=== PATIENT | male | born 1960 | race Caucasian/White ===

== ENCOUNTER 2019-08-02 07:35 | Inpatient (IN) | payer MEDICARE ==
[2019-08-02 08:31] LABS: CHLORIDE,CL 107 mEq/L (98-106); SODIUM,NA 142 mEq/L (136-145)
--- NOTE | 2019-08-02 09:30 | EDM.PDOC ---
ED HPI GENERAL MEDICAL PROBLEM - General Chief Complaint: General Stated Complaint: BREATHING COMPLICATIONS/MEDICINE OUT OF WHACK Time Seen by Provider: 08/02/19 08:11 Source of Information: Reports: Patient History Limitations: Reports: Altered Mental Status - History of Present Illness INITIAL COMMENTS - FREE TEXT/NARRATIVE: Nash is a 59-year-old male who presents ambulatory to the emergency department with an array of complaints. He reports that his medications have been "out of whack" as he does not have a stable living environment and he has been having issues because of this. Reports that he was diagnosed with cardiomyopathy at the [facility] earlier this year. He reports he is supposed to be taking diuretics, but he has not been taking these lately as he has been basically living out of his car. Additionally he reports he is also stopped taking his Depakote. He does have a history of bipolar disorder and has had manic episodes in the past. His story is very difficult to follow as he is in an obvious manic phase. He has flight of ideas and is tangential when trying to explain his story. In addition to this he also has very rapid speech and grandiose thoughts. He reports that he is unable to care for himself due to his current living situation, lack of motivation, and lack of family support. He reports he follows with at the [facility] [place] for his mental health. He reports that he has been out of his Depakote for approximately a week. He reports that he has not been taking his diuretics as he "does not have the bathroom that he can sit on for 3 hours in the morning." He reports that because of this his heart failure is uncontrolled and he is "filling up with fluids in his abdomen." Additionally he reports he is short of breath, worse on lying down. He denies any chest pain currently, but does report he was seen in the [facility] emergency room 2 days ago for left shoulder pain. He reports he was told it was arthritis. Does report he was given on Ativan drip to calm him down and then discharged. Throughout interview patient jumps quickly from one topic to the next making it difficult to gather a complete history. He is frustrated that he is not being evaluated by his primary care provider Dr. Lam here in the ED. 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 He then goes on to discuss his shortness of breath. Denies any fever, chills, chest pain, cough, N/V/D, abdominal pain, swelling. Denies any ETOH use. Does report he ocassionally smokes marijuana, but denies any other illicit drug use. Does report history of this a number of years ago. Duration: Constant Associated Symptoms: Reports: Shortness of Breath. Denies: Confusion, Chest Pain, Cough, cough w sputum, Diaphoresis, Fever/Chills, Headaches, Loss of Appetite, Malaise, Nausea/Vomiting, Rash, Seizure, Syncope, Weakness Left Shoulder Pain Score (Numeric/FACES): 7 - Related Data Allergies Allergy/AdvReac Type Severity Reaction Status Date / Time No Known Allergies Allergy Verified 08/02/19 07:49 Home Meds: Home Meds Divalproex Sodium 500 mg PO BID 03/11/15 [History] risperiDONE [RisperiDAL] 1 mg PO ACBRKBED 03/11/15 [History] Carvedilol 1 tab PO BID 08/02/19 [History] Gabapentin [Neurontin] 2 tab PO BID PRN 08/02/19 [History] LORazepam 1 tab PO BID 08/02/19 [History] Lisinopril 1 tab PO DAILY 08/02/19 [History] Sertraline [Zoloft] 1 tab PO DAILY 08/02/19 [History] Spironolactone [Aldactone] 1 tab PO DAILY 08/02/19 [History] Torsemide 1 tab PO DAILY 08/02/19 [History] busPIRone [Buspar] 1 tab PO BID PRN 08/02/19 [History] traZODone HCl [Trazodone HCl] 1 tab PO BEDTIME 08/02/19 [History] Past Medical History HEENT History: Reports: Otitis Media Cardiovascular History: Reports: Hypertension Respiratory History: Reports: COPD Musculoskeletal History: Reports: Other (See Below) Other Musculoskeletal History: L shoulder pain last 3 months- previous dx rotator cuff issues had x rays Psychiatric History: Reports: Addiction, Anxiety, Bipolar, Depression - Past Surgical History Male Surgical History: Reports: Other (See Below) Other Male Surgeries/Procedures: "hydrocele surgery" Neurological Surgical History: Reports: Laminectomy Musculoskeletal Surgical History: Reports: Other (See Below) Other Musculoskeletal Surgeries/Procedures:: meniscus repair to L knee Social & Family History - Family History Family Medical History: Noncontributory - Tobacco Use Smoking Status *Q: Never Smoker - Recreational Drug Use Recreational Drug Use: Yes Drug Use in Last 12 Months: Yes Recreational Drug Type: Reports: Marijuana/Hashish ED ROS GENERAL - Review of Systems Review Of Systems: ROS reveals no pertinent complaints other than HPI. Constitutional: Reports: Weight Gain HEENT: Reports: No Symptoms Respiratory: Reports: Shortness of Breath. Denies: Wheezing, Pleuritic Chest Pain, Cough, Sputum Cardiovascular: Reports: Dyspnea on Exertion, Orthopnea. Denies: Chest Pain, Edema, Lightheadedness, Palpitations, PND, Syncope Endocrine: Reports: No Symptoms GI/Abdominal: Denies: Abdominal Pain, Constipation, Diarrhea, Decreased Appetite , Nausea, Vomiting : Reports: No Symptoms Musculoskeletal: Reports: Shoulder Pain (left) Skin: Reports: No Symptoms Neurological: Reports: Tremors. Denies: Confusion, Dizziness, Headache, Numbness, Tingling, Difficulty Walking, Weakness Psychiatric: Reports: Anxiety, Other (flight of ideas, tangential thoughts, grandiose thoughts) ED EXAM, GENERAL - Physical Exam Exam: See Below Exam Limited By: No Limitations General Appearance: Alert, WD/WN, Anxious Eye Exam: Bilateral Eye: EOMI, Normal Fundi, Normal Inspection, PERRL Ears: Normal External Exam, Normal Canal, Hearing Grossly Normal, Normal TMs Nose: Normal Inspection, Normal Mucosa, No Blood Throat/Mouth: Normal Inspection, Normal Lips, Normal Teeth, Normal Gums, Normal Oropharynx, Normal Voice, No Airway Compromise Head: Atraumatic, Normocephalic Neck: Normal Inspection, Supple, Non-Tender, Full Range of Motion Respiratory/Chest: No Respiratory Distress, Lungs Clear, Normal Breath Sounds, No Accessory Muscle Use, Chest Non-Tender Cardiovascular: Normal Peripheral Pulses, Regular Rate, Rhythm, No Edema, No Gallop, No JVD, No Murmur, No Rub GI/Abdominal: Normal Bowel Sounds, Soft, Non-Tender, No Organomegaly, No Distention, No Abnormal Bruit, No Mass Back Exam: Normal Inspection, Full Range of Motion, NT Extremities: Normal Inspection, Normal Range of Motion, Non-Tender, Normal Capillary Refill, No Pedal Edema Neurological: Alert, Oriented, CN II-XII Intact, Normal Gait, No Motor/Sensory Deficits Psychiatric: Anxious, Other (tangential thoughts, grandiose thoughts, flights of ideas, normal insight) Skin Exam: Warm, Dry, Intact, Normal Color, No Rash Course - Vital Signs Last Recorded V/S: Last Vital Signs Temp 97.0 F 08/03/19 04:00 Pulse 70 08/03/19 07:50 Resp 18 08/03/19 04:00 BP 97/57 L 08/03/19 07:51 Pulse Ox 98 08/03/19 04:00 - Orders/Labs/Meds Orders: Active Orders 24 hr Category Date Time Status Chest 2V [CR] Stat Exams 08/02/19 07:49 Taken Medication Orders Acetaminophen (Tylenol) 650 mg PO Q4H PRN PRN Reason: Pain (Mild 1-3)/fever Last Admin: 08/02/19 22:39 Dose: 650 mg Admin: 08/02/19 16:49 Dose: 650 mg Carvedilol (Coreg) 3.125 mg PO BID [facility] Last Admin: 08/03/19 07:50 Dose: 3.125 mg Admin: 08/02/19 19:51 Dose: 3.125 mg Admin: 08/02/19 11:15 Dose: 3.125 mg Divalproex Sodium (Depakote Er) 500 mg PO TID [facility] Last Admin: 08/03/19 07:51 Dose: 500 mg Enoxaparin Sodium (Lovenox) 40 mg SUBCUT Q24H [facility] Last Admin: 08/02/19 11:16 Dose: 40 mg Gabapentin (Neurontin) 200 mg PO BID PRN PRN Reason: Pain Lisinopril (Prinivil) 5 mg PO DAILY [facility] Last Admin: 08/03/19 07:51 Dose: 5 mg Admin: 08/02/19 11:15 Dose: 5 mg Lorazepam (Ativan) 1 mg IVPUSH Q4H PRN PRN Reason: Anxiety Last Admin: 08/02/19 22:41 Dose: 1 mg Admin: 08/02/19 10:54 Dose: 1 mg Ownmed Buspirone ([Buspar] 1 Tab) 1 tab PO BID [facility] Last Admin: 08/03/19 07:49 Dose: 1 tab Admin: 08/02/19 19:50 Dose: 1 tab Risperidone (Risperidal) 1 mg PO ACBRKBED [facility] Last Admin: 08/03/19 07:43 Dose: 1 mg Admin: 08/02/19 19:52 Dose: 1 mg Admin: 08/02/19 11:16 Dose: 1 mg Sodium Chloride (Saline Flush) 10 ml FLUSH ASDIRECTED PRN PRN Reason: Keep Vein Open Spironolactone (Aldactone) 25 mg PO DAILY [facility] Last Admin: 08/03/19 07:49 Dose: 25 mg Admin: 08/02/19 11:16 Dose: 25 mg Temazepam (Restoril) 15 mg PO BEDTIME PRN PRN Reason: Sleep Torsemide (Demadex) 20 mg PO DAILY [facility] Last Admin: 08/03/19 07:50 Dose: 20 mg Admin: 08/02/19 11:16 Dose: 20 mg Trazodone HCl (Trazodone) 50 mg PO BEDTIME [facility] Last Admin: 08/02/19 19:52 Dose: 50 mg Labs: Laboratory Tests 08/02/19 08/02/19 Range/Units 08:05 08:05 WBC 5.7 (5.0-10.0) 10^3/uL RBC 4.16 L (4.50-6.00) 10^6/uL Hgb 12.0 L (14.0-18.0) g/dL Hct 35.1 L (40.0-54.0) % MCV 84.4 (82.0-94.0) fL MCH 28.8 (27.0-32.0) pg MCHC 34.2 (33.0-38.0) g/dL RDW Coeff of Blue 13.3 (11.0-15.0) % Plt Count 305 (150-400) 10^3/uL Neut % (Auto) 50.5 (35-85) % Lymph % (Auto) 32.8 (10-55) % Loving % (Auto) 8.8 (0-16) % Eos % (Auto) 7.2 H (0-5) % Baso % (Auto) 0.7 (0-3) % Neut # (Auto) 2.86 (1.80-7.00) 10^3/uL Lymph # (Auto) 1.86 (1.00-4.80) 10^3/uL Loving # (Auto) 0.50 (0.00-0.80) 10^3/uL Eos # (Auto) 0.41 (0.00-0.45) 10^3/uL Baso # (Auto) 0.04 10^3/uL Sodium 142 (136-145) mEq/L Potassium 3.8 (3.5-5.0) mEq/L Chloride 107 H (98-106) mEq/L Carbon Dioxide 26 (21-32) mmol/L BUN 19 H (7-18) mg/dL Creatinine 1.0 (0.7-1.3) mg/dL Est Cr Clr Drug Dosing 82.13 mL/min Estimated GFR (MDRD) > 60 (>=60) mL/min Glucose 114 H (75-99) mg/dL Calcium 8.8 (8.4-10.1) mg/dL Creatine Kinase 157 (35-232) U/L Troponin I < 0.017 (0.00-0.06) ng/mL C-Reactive Protein < 0.2 L (0.2-0.8) mg/dL NT-Pro-B Natriuret Pep 1620 H (0-1000) pg/mL Meds: Medications Generic Name Dose Route Start Last Admin Trade Name Freq PRN Reason Stop Dose Admin Acetaminophen 650 mg 08/02/19 09:46 08/02/19 22:39 Tylenol PO 650 mg Q4H PRN Administration Pain (Mild 1-3)/fever Carvedilol 3.125 mg 08/02/19 10:30 08/03/19 07:50 Coreg PO 3.125 mg BID ANTELMO Administration Divalproex Sodium 500 mg 08/03/19 08:00 08/03/19 07:51 Depakote Er PO 500 mg TID ANTELMO Administration Enoxaparin Sodium 40 mg 08/02/19 12:00 08/02/19 11:16 Lovenox SUBCUT 40 mg Q24H ANTELMO Administration Gabapentin 200 mg 08/02/19 09:46 Neurontin PO BID PRN Pain Lisinopril 5 mg 08/02/19 10:30 08/03/19 07:51 Prinivil PO 5 mg DAILY ANTELMO Administration Lorazepam 1 mg 08/02/19 09:46 08/02/19 22:41 Ativan IVPUSH 1 mg Q4H PRN Administration Anxiety Ownmed Buspirone 1 tab 08/02/19 20:00 08/03/19 07:49 [Buspar] 1 Tab PO 1 tab BID ANTELMO Administration Risperidone 1 mg 08/02/19 11:00 08/03/19 07:43 Risperidal PO 1 mg ACBRKBED ANTELMO Administration Sodium Chloride 10 ml 08/02/19 09:46 Saline Flush FLUSH ASDIRECTED PRN Keep Vein Open Spironolactone 25 mg 08/02/19 10:30 08/03/19 07:49 Aldactone PO 25 mg DAILY ANTELMO Administration Temazepam 15 mg 08/02/19 09:46 Restoril PO BEDTIME PRN Sleep Torsemide 20 mg 08/02/19 10:30 08/03/19 07:50 Demadex PO 20 mg DAILY ANTELMO Administration Trazodone HCl 50 mg 08/02/19 20:00 08/02/19 19:52 Trazodone PO 50 mg BEDTIME ANTELMO Administration Discontinued Medications Generic Name Dose Route Start Last Admin Trade Name Freq PRN Reason Stop Dose Admin Divalproex Sodium 500 mg 08/02/19 10:30 08/02/19 19:51 Depakote Er PO 08/02/19 20:01 500 mg BID ANTELMO Administration Ownmed Buspirone 1 tab 08/02/19 09:46 [Buspar] 1 Tab PO BID PRN Anxiety Risperidone Confirm 08/03/19 07:51 08/03/19 07:48 Risperidal Administered 08/03/19 07:52 Not Given Dose 1 mg .ROUTE .STK-MED ONE Sertraline HCl 100 mg 08/02/19 10:30 08/02/19 11:26 Zoloft PO Not Given DAILY ANTELMO - Re-Assessments/Exams Free Text/Narrative Re-Assessment/Exam: Attempted to discuss with patient his bipolar disorder and his current manic phase. He reports that is not his issues at this time. Reports he doesn't need any Ativan, as he has that at home. He reports that not what he needs at this time. Patient continues to be very anxious, with tremors to BUE, and speaking very fast and jumping from topic to topic. Did consult with Dr. Lam, patient's PCP, who came down to ED and assessed patient. He then discussed with patient that he is having manic episode. Recommended admission to hospital to get patient restarting on his bipolar medications, as well as his CHF meds. He discussed with patient that it is not healthy to be in extended manic episode. Urine drug screen and UA were pending at time of admission as patient was unable to urinate. He did urinate and drug screen is positive for methamphetamines. Patient denies use. Departure - Departure Time of Disposition: 10:15 Disposition: Refer to Observation Condition: Fair Clinical Impression: CHF, Congestive heart failure, Bipolar disorder, curr episode manic w/o psychotic features, moderate, Drug use - Discharge Information *PRESCRIPTION DRUG MONITORING PROGRAM REVIEWED*: Not Applicable *COPY OF PRESCRIPTION DRUG MONITORING REPORT IN PATIENT YOVANNY: Not Applicable - Problem List & Annotations (1) Bipolar disorder, curr episode manic w/o psychotic features, moderate SNOMED Code(s): 656820792 Code(s): F31.12 - BIPOLAR DISORD, CRNT EPISODE MANIC W/O PSYCH FEATURES, MOD Status: Acute Current Visit: Yes Onset Date: ~07/26/19 Annotation/ Comment:: Patient reports history of bipolar disorder. Patient reports being off his Depakote for about one week but states he has been taking his Lorazepam , Risperidone, and Sertraline. He reports just being started on the Sertraline. Nash states he has been seeing Dr. George through [facility] however he does not always make his appointments. Patient reports a decrease need for sleep, increased energy, racing thought, irritability, and distractibility. Nash difficult to follow during assessment due to patient experiencing a manic episode. (2) CHF, Congestive heart failure SNOMED Code(s): 56666760 Code(s): I50.9 - HEART FAILURE, UNSPECIFIED Status: Chronic Current Visit : Yes (3) Drug use SNOMED Code(s): 558368217 Code(s): F19.90 - OTHER PSYCHOACTIVE SUBSTANCE USE, UNSPECIFIED, UNCOMPLICATED Status: Chronic Current Visit: Yes - Problem List Review Problem List Initiated/Reviewed/Updated: Yes - My Orders Last 24 Hours: My Active Orders 08/02/19 07:49 Chest 2V [CR] Stat - Assessment/Plan Admission H&P: Please use this note as an admission H&P Last 24 Hours: My Active Orders 08/02/19 07:49 Chest 2V [CR] Stat Assessment:: Bipolar Disorder, current episode manic w/o psychotic features Congestive Heart Failure Drug Abuse Plan: Patient in very obvious manic phase. He has not been taking his Depakote for the past week. Will restart his home medications. Consult to our psychiatric mental health [facility] [employer] ASSISTANT for further evaluation and medication management. ProBNP elevated to 1620. This is up slightly from last check with cardiology when it was ~700. Does have upcoming echocardiogram scheduled. He has also not been taking his diuretics for an unknown amount of time. Will restart his home medications. Chest xray is negative. Patients lungs are clear and he does not appear short of breath. O2 sats 100% on RA. Do not feel he has CHF exacerbation at this time, simply needs to be compliant with medications. His urine drug screen is positive for methamphetamines. Discussed significant risk with drug use and heart failure. Patient denies any use. Ativan as needed for withdrawal symptoms. Unsure of last time of use as patient denies any use. Patient currently homeless. 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 Consult to case management. Patient will be admitted to observation with telemetry and home medications will be restarted. Did consult with Dr. Lam, who agrees with plan.
[2019-08-02] MEDS ORDERED: Temazepam 15 MG Cap PO PRN (09:46)
[2019-08-02] MEDS ORDERED: BUSPIRONE PO PRN (09:46)
[2019-08-02] MEDS ORDERED: Sodium Chloride 0.9% 10 ML Syringe FLUSH PRN (09:46)
[2019-08-02] MEDS ORDERED: GABAPENTIN 100 MG PO PRN (09:46)
[2019-08-02] MEDS ORDERED: Sertraline 100 MG Tab PO SCH (10:30)
[2019-08-02] MEDS: LORazepam 2 MG/ML Syringe IVPUSH PRN ×2 (10:54→22:41)
--- NOTE | 2019-08-02 11:12 | PCM.CONSBH ---
Hx. Present Illness - - General Date of Service: 08/02/19 Admit Problem/Dx: Admission Diagnosis/Problem Admission Diagnosis/Problem Jess Source of Information: Reports: Patient, EMS - Related Data Allergies/Adverse Reactions: Allergies Allergy/AdvReac Type Severity Reaction Status Date / Time No Known Allergies Allergy Verified 08/02/19 07:49 Home Medications: Home Meds Divalproex Sodium 500 mg PO BID 03/11/15 [History] risperiDONE [RisperiDAL] 1 mg PO ACBRKBED 03/11/15 [History] Carvedilol 1 tab PO BID 08/02/19 [History] Gabapentin [Neurontin] 2 tab PO BID PRN 08/02/19 [History] LORazepam 1 tab PO BID 08/02/19 [History] Lisinopril 1 tab PO DAILY 08/02/19 [History] Sertraline [Zoloft] 1 tab PO DAILY 08/02/19 [History] Spironolactone [Aldactone] 1 tab PO DAILY 08/02/19 [History] Torsemide 1 tab PO DAILY 08/02/19 [History] busPIRone [Buspar] 1 tab PO BID PRN 08/02/19 [History] traZODone HCl [Trazodone HCl] 1 tab PO BEDTIME 08/02/19 [History] Past Medical Hx - Other Musculoskeletal Hx: L shoulder pain last 3 months- previous dx rotator cuff issues had x rays Psychiatric Hx: Reports: Bipolar Other Psychiatric Hx: Patient has experienced multiple hospitalizations over the years since being diagonised with bipolar disorder in 1999. He reports hospitalization at the [facility] and at [facility]. Patient believes he has had under 10 hospitalizations over the years but is unable to remember them all. Patient states he has been receiving outpatient services through [facility] off and on through 1999 but that it is difficult at time to make his appointments. Past medication history includes: Buproprione (states it didn't work), Quetiapine (made him tired), Clonazepam (states it was helpful and calmed him), Duloxetine (states it didn't work), Zirprasidone (reports became sick once at theraputic level), and Lamotrigine (pt states he developed a rash). Other (Male) Surgical Hx: "hydrocele surgery" Other Musculoskeletal Surgical Hx: meniscus repair to L knee Social & Family History - - Family History Family Psychiatric and CD Hx: Patient reports family history of bipolar disorder, depression, and alcohol abuse on maternal side. Patient states his mom had bipolar disorder. - Social History Social History: Patient was born in [place] and lived there until he was 13 years old. At 13 years old the patient and his family moved to [facility] and in the patient moved to [place]. While living in [place] patient states he started experimenting with cocaine around age of 16. Patient reports first trying alcohol at 11 years old and marijuana at 13. He reports "experimenting with drugs" in the like acid and heroin. Patient has a history of substance abuse over the years with cocaine as the patient's drug of choice. He reports last using cocaine about two years ago but reports methamphetamine use in the last three years. He is unable to remember when he used methamphetamine last. Last marijuana use was reported as "couple days ago." Patient has been and twice to Margaret who continues to be involved in the patients life. - Alcohol Use Alcohol Use History: No Review of Systems - - Review of Systems: Review Of Systems: ROS reveals no pertinent complaints other than HPI. Psychiatric: Reports: Mood Lability, Anxiety Exam - - Exam Exam: See Below - Vital Signs Vital Signs: Last Vital Signs Temp 36.6 C 08/02/19 09:46 Pulse 72 08/02/19 09:46 Resp 18 08/02/19 09:46 BP 156/84 H 08/02/19 09:46 Pulse Ox 100 08/02/19 09:46 - Exam Mental Status Exam: General Appearance: patient lying in hospital bed in street clothes. Motor: fidgety, bouncing foot rapidly, animated when talking (waving arms/hands) Speech: pressured speech, loud Affect: labile Thought Content: denies suicidal or homicidal ideations; denies delusions Thought Process: flight of ideas; tangential at times Perception: denies hallucinations Judgment/Insight: poor General: Alert Psychiatric: Labile Mood, Anxious - [place] I, II, III (1) Bipolar disorder, curr episode manic w/o psychotic features, moderate [place]: [place] I SNOMED Code(s): 668129423 ICD Code: F31.12 - BIPOLAR DISORD, CRNT EPISODE MANIC W/O PSYCH FEATURES, MOD Status: Acute Current Visit: Yes Onset Date: ~07/26/19 Problem Details: Patient reports history of bipolar disorder. Patient reports being off his Depakote for about one week but states he has been taking his Lorazepam, Risperidone, and Sertraline. He reports just being started on the Sertraline. Nash states he has been seeing Dr. George through [facility] however he does not always make his appointments. Patient reports a decrease need for sleep, increased energy, racing thought, irritability, and distractibility. Nash difficult to follow during assessment due to patient experiencing a manic episode. - [place] IV Psychosocial and Environmental Problems: Patient reports unstable housing and has been living in hotels over the last week. He reports sleeping in his car last night. Financial stressors as patient is unemployed. He does reports being on disability at this time. Patient reports poor family support. He does not feel as if there is anyone who cares for him. - Plan FREE TEXT/NARRATIVE: Recommend starting Depakote 500 mg BID today and increase to 500 mg TID tomorrow 08/02/19. Continue Risperidone 1 mg; 1 tablet BID. Discontinue Sertraline and Hydroxyzine at this time. Depakote trough level will need to be drawn in four days with dose adjusted as needed. Outpatient follow up with undersigned. - Problem List Review Problem List Initiated/Reviewed/Updated: Yes - Orders Orders Last 24hrs: Active Orders 24 hr Category Date Time Status Patient Status [ADT] Routine ADT 08/02/19 09:46 Active Cardiac Monitoring [RC] 0800,1999 Care 08/02/19 09:46 Active Notify Provider Consults [RC] .PRN Care 08/02/19 09:46 Active Oxygen Therapy [RC] .PRN Care 08/02/19 09:46 Active Pulse Oximetry [RC] .PRN Care 08/02/19 09:46 Active Up ad Nano [RC] .PRN Care 08/02/19 09:46 Active Vital Signs [RC] 0000,0400,0800,1200,1600,1999 Care 08/02/19 09:46 Active Consult to Physician [CONS] Routine Cons 08/02/19 09:46 Active Regular Diet [DIET] Diet 08/02/19 Lunch Active Chest 2V [CR] Stat Exams 08/02/19 07:49 Taken DRUG SCREEN URINE BIORAD [URCHEM] Stat Lab 08/02/19 09:46 Ordered UA RFX TAMMY AND CULT IF INDIC [URIN] Stat Lab 08/02/19 09:46 Ordered Acetaminophen [Tylenol] Med 08/02/19 09:46 Active 650 mg PO Q4H PRN Carvedilol [Coreg] Med 08/02/19 10:30 Active 3.125 mg PO BID Divalproex Sodium [Depakote ER] Med 08/02/19 10:30 Active 500 mg PO BID Divalproex Sodium [Depakote ER] Med 08/03/19 08:00 Active 500 mg PO TID Enoxaparin [Lovenox] Med 08/02/19 12:00 Active 40 mg SUBCUT Q24H Gabapentin [Neurontin] Med 08/02/19 09:46 Active 200 mg PO BID PRN LORazepam [Ativan] Med 08/02/19 09:46 Active 1 mg IVPUSH Q4H PRN Lisinopril [Prinivil] Med 08/02/19 10:30 Active 5 mg PO DAILY Sodium Chloride 0.9% [Saline Flush] Med 08/02/19 09:46 Active 10 ml FLUSH ASDIRECTED PRN Spironolactone [Aldactone] Med 08/02/19 10:30 Active 25 mg PO DAILY Temazepam [Restoril] Med 08/02/19 09:46 Active 15 mg PO BEDTIME PRN Torsemide [Demadex] Med 08/02/19 10:30 Active 20 mg PO DAILY busPIRone [Buspar] Med 08/02/19 09:46 Active 1 tab PO BID PRN risperiDONE [RisperiDAL] Med 08/02/19 11:00 Active 1 mg PO ACBRKBED traZODone Med 08/02/19 20:00 Active 50 mg PO BEDTIME Saline Lock Insert [OM.PC] Routine Oth 08/02/19 09:46 Ordered Resuscitation Status Routine Resus Stat 08/02/19 09:15 Ordered Medication Orders Acetaminophen (Tylenol) 650 mg PO Q4H PRN PRN Reason: Pain (Mild 1-3)/fever Carvedilol (Coreg) 3.125 mg PO BID ANTELMO Divalproex Sodium (Depakote Er) 500 mg PO BID ANTELMO Stop: 08/02/19 20:01 Divalproex Sodium (Depakote Er) 500 mg PO TID [facility] Enoxaparin Sodium (Lovenox) 40 mg SUBCUT Q24H ANTELMO Gabapentin (Neurontin) 200 mg PO BID PRN PRN Reason: Pain Lisinopril (Prinivil) 5 mg PO DAILY [facility] Lorazepam (Ativan) 1 mg IVPUSH Q4H PRN PRN Reason: Anxiety Last Admin: 08/02/19 10:54 Dose: 1 mg Ownmed Buspirone ([Buspar] 1 Tab) 1 tab PO BID PRN PRN Reason: Anxiety Risperidone (Risperidal) 1 mg PO ACBRKBED [facility] Sodium Chloride (Saline Flush) 10 ml FLUSH ASDIRECTED PRN PRN Reason: Keep Vein Open Spironolactone (Aldactone) 25 mg PO DAILY [facility] Temazepam (Restoril) 15 mg PO BEDTIME PRN PRN Reason: Sleep Torsemide (Demadex) 20 mg PO DAILY [facility] Trazodone HCl (Trazodone) 50 mg PO BEDTIME [facility] TeleHealth - TeleHealth Patient Service Facility: [facility]: [facility]
[2019-08-02] MEDS: LISINOPRIL 5 MG PO SCH (11:15)
[2019-08-02] MEDS: Carvedilol 3.125 MG Tab PO SCH ×2 (11:15→19:51)
[2019-08-02] MEDS: RISPERIDONE 1 MG PO SCH ×2 (11:16→19:52)
[2019-08-02] MEDS: Enoxaparin 40 MG/0.4 ML Syringe SUBCUT SCH (11:16)
[2019-08-02] MEDS: SPIRONOLACTONE 25 MG PO SCH (11:16)
[2019-08-02] MEDS: Torsemide 20 MG Tab PO SCH (11:16)
[2019-08-02] MEDS: Divalproex Sodium 250 MG Tab.ER PO SCH ×2 (11:18→19:51)
[2019-08-02] MEDS: Acetaminophen 325 MG Tab PO PRN ×2 (16:49→22:39)
[2019-08-02] MEDS: BUSPIRONE PO SCH (19:50)
[2019-08-02] MEDS: TRAZODONE 50 MG PO SCH (19:52)
[2019-08-03] MEDS: RISPERIDONE 1 MG PO SCH (07:43)
[2019-08-03] MEDS: SPIRONOLACTONE 25 MG PO SCH (07:49)
[2019-08-03] MEDS: BUSPIRONE PO SCH ×2 (07:49→19:26)
[2019-08-03] MEDS: Torsemide 20 MG Tab PO SCH (07:50)
[2019-08-03] MEDS: Carvedilol 3.125 MG Tab PO SCH ×2 (07:50→19:27)
[2019-08-03] MEDS ORDERED: risperiDONE 1 MG Tab ONE (07:51)
[2019-08-03] MEDS: Divalproex Sodium 250 MG Tab.ER PO SCH ×3 (07:51→19:28)
[2019-08-03] MEDS: LISINOPRIL 5 MG PO SCH (07:51)
--- NOTE | 2019-08-03 09:24 | PCM.PN ---
- General Info Date of Service: 08/03/19 Admission Dx/Problem (Free Text): Admission Diagnosis/Problem Admission Diagnosis/Problem Jess Functional Status: Reports: Tolerating Diet, Ambulating. Denies: Pain Controlled (complains of left shoulder pain) - Review of Systems General: Reports: No Symptoms HEENT: Reports: No Symptoms Pulmonary: Reports: Shortness of Breath. Denies: Cough Cardiovascular: Denies: Chest Pain, Edema, Lightheadedness Gastrointestinal: Denies: Abdominal Pain, Decreased Appetite, Nausea Genitourinary: Reports: No Symptoms Musculoskeletal: Reports: No Symptoms Skin: Reports: No Symptoms Neurological: Reports: No Symptoms Psychiatric: Reports: Anxiety - Patient Data Vitals - Most Recent: Last Vital Signs Temp 97.0 F 08/03/19 04:00 Pulse 70 08/03/19 07:50 Resp 18 08/03/19 04:00 BP 97/57 L 08/03/19 07:51 Pulse Ox 98 08/03/19 04:00 Weight - Most Recent: 195 lb 9.6 oz Lab Results Last 24 Hours: Laboratory Results - last 24 hr 08/02/19 08/02/19 Range/Units 13:55 13:55 Urine Color Yellow (YELLOW) Urine Appearance Clear (CLEAR) Urine pH 7.0 (4.5-8.0) Ur Specific [place] 1.020 (1.003-1.020) Urine Protein Negative (NEGATIVE) mg/dL Urine Glucose (UA) Negative (NEGATIVE) mg/dL Urine Ketones Negative (NEGATIVE) mg/dL Urine Occult Blood Negative (NEGATIVE) Urine Nitrite Negative (NEGATIVE) Urine Bilirubin Negative (NEGATIVE) Urine Urobilinogen 0.2 (0.2-1.0) EU/dL Ur Leukocyte Esterase Negative (NEGATIVE) Urine Opiates Screen Negative (NEGATIVE) Ur Oxycodone Screen Negative (NEGATIVE) Urine Methadone Screen Negative (NEGATIVE) Ur Barbiturates Screen Negative (NEGATIVE) U Tricyclic Antidepress Negative (NEGATIVE) Ur Phencyclidine Scrn Negative (NEGATIVE) Ur Amphetamine Screen Positive H (NEGATIVE) U Methamphetamines Scrn Positive H (NEGATIVE) Urine MDMA Screen Negative (NEGATIVE) U Benzodiazepines Scrn Positive H (NEGATIVE) Urine Cocaine Screen Negative (NEGATIVE) U Marijuana (THC) Screen Negative (NEGATIVE) Med Orders - Current: Current Medications Acetaminophen (Tylenol) 650 mg PO Q4H PRN PRN Reason: Pain (Mild 1-3)/fever Last Admin: 08/02/19 22:39 Dose: 650 mg Carvedilol (Coreg) 3.125 mg PO BID [facility] Last Admin: 08/03/19 07:50 Dose: 3.125 mg Divalproex Sodium (Depakote Er) 500 mg PO TID [facility] Last Admin: 08/03/19 07:51 Dose: 500 mg Enoxaparin Sodium (Lovenox) 40 mg SUBCUT Q24H [facility] Last Admin: 08/02/19 11:16 Dose: 40 mg Gabapentin (Neurontin) 200 mg PO BID PRN PRN Reason: Pain Lisinopril (Prinivil) 5 mg PO DAILY [facility] Last Admin: 08/03/19 07:51 Dose: 5 mg Lorazepam (Ativan) 1 mg IVPUSH Q4H PRN PRN Reason: Anxiety Last Admin: 08/02/19 22:41 Dose: 1 mg Ownmed Buspirone ([Buspar] 1 Tab) 1 tab PO BID [facility] Last Admin: 08/03/19 07:49 Dose: 1 tab Risperidone (Risperidal) 1 mg PO ACBRKBED [facility] Sodium Chloride (Saline Flush) 10 ml FLUSH ASDIRECTED PRN PRN Reason: Keep Vein Open Spironolactone (Aldactone) 25 mg PO DAILY [facility] Last Admin: 08/03/19 07:49 Dose: 25 mg Temazepam (Restoril) 15 mg PO BEDTIME PRN PRN Reason: Sleep Torsemide (Demadex) 20 mg PO DAILY [facility] Last Admin: 08/03/19 07:50 Dose: 20 mg Trazodone HCl (Trazodone) 50 mg PO BEDTIME [facility] Last Admin: 08/02/19 19:52 Dose: 50 mg Discontinued Medications Divalproex Sodium (Depakote Er) 500 mg PO BID [facility] Stop: 08/02/19 20:01 Last Admin: 08/02/19 19:51 Dose: 500 mg Ownmed Buspirone ([Buspar] 1 Tab) 1 tab PO BID PRN PRN Reason: Anxiety Risperidone (Risperidal) 1 mg PO ACBRKBED [facility] Last Admin: 08/03/19 07:43 Dose: 1 mg Risperidone (Risperidal) Confirm Administered Dose 1 mg .ROUTE .STK-MED ONE Stop: 08/03/19 07:52 Last Admin: 08/03/19 07:48 Dose: Not Given Sertraline HCl (Zoloft) 100 mg PO DAILY ANTELMO Last Admin: 08/02/19 11:26 Dose: Not Given - Exam General: Alert, Oriented HEENT: Mucous Membr. Moist/[place] Neck: Supple Lungs: Clear to Auscultation, Normal Respiratory Effort Cardiovascular: Regular Rate, Regular Rhythm GI/Abdominal Exam: Normal Bowel Sounds, Soft, Non-Tender Extremities: Normal Inspection, No Pedal Edema Skin: Warm, Dry Neurological: No New Focal Deficit Psy/Mental Status: Anxious (still fidgety but much improved from yesterday) - Problem List & Annotations (1) Bipolar I disorder with jess SNOMED Code(s): 69095413 Code(s): F31.10 - BIPOLAR DISORD, CRNT EPISODE MANIC W/O PSYCH FEATURES, UNSP Status: Acute Current Visit: Yes - Problem List Review Problem List Initiated/Reviewed/Updated: Yes - My Orders Last 24 Hours: My Active Orders 08/03/19 08:46 Consult to Physical Therapy [PT Evaluation and Treatment] [CONS] Routine 08/03/19 08:53 Consult to Case Management/Bridge Maintainer [CONS] Routine - Assessment Assessment:: Bipolar Disorder with jess - Plan Plan:: Patient feels less anxious and restless today. States has "a lot of stressors in his life". Complaining of left shoulder pain this am. No recent injury, states has been bothering him for some time. Also has increased shortness of breath with activity. Did meet with Marcelle Long yesterday afternoon, adjusted medications (restarted his Depakota and Risperdal) and started Buspar. Is tolerating them well. will arrange for PT to see patient for left shoulder pain. Continue meds per Marcelle. Social service consult for home plan as patient has been living in hotels and staying in his car.
[2019-08-03] MEDS: Acetaminophen 325 MG Tab PO PRN ×2 (09:33→19:33)
[2019-08-03] MEDS: Enoxaparin 40 MG/0.4 ML Syringe SUBCUT SCH (12:16)
[2019-08-03] MEDS: TRAZODONE 50 MG PO SCH (19:29)
[2019-08-03] MEDS: risperiDONE 1 MG Tab PO SCH (19:33)
[2019-08-03] MEDS: LORazepam 0.5 MG Tab PO PRN (22:54)
[2019-08-04] MEDS: risperiDONE 1 MG Tab PO SCH ×2 (06:59→19:34)
[2019-08-04] MEDS: Divalproex Sodium 250 MG Tab.ER PO SCH ×3 (07:29→19:25)
[2019-08-04] MEDS: Carvedilol 3.125 MG Tab PO SCH ×2 (07:30→19:33)
[2019-08-04] MEDS: BUSPIRONE PO SCH ×2 (07:31→19:33)
[2019-08-04] MEDS: SPIRONOLACTONE 25 MG PO SCH (07:32)
[2019-08-04] MEDS: LISINOPRIL 5 MG PO SCH (07:32)
[2019-08-04] MEDS: Torsemide 20 MG Tab PO SCH (07:33)
[2019-08-04] MEDS: Enoxaparin 40 MG/0.4 ML Syringe SUBCUT SCH (11:59)
[2019-08-04] MEDS ORDERED: traZODone 50 MG Tab PO PRN (12:30)
[2019-08-04] MEDS: Acetaminophen 325 MG Tab PO PRN (21:01)
--- NOTE | 2019-08-04 22:04 | PCM.PN ---
- General Info Date of Service: 08/04/19 Admission Dx/Problem (Free Text): Admission Diagnosis/Problem Admission Diagnosis/Problem Jess Functional Status: Reports: Pain Controlled, Tolerating Diet, Ambulating - Review of Systems General: Denies: Fever, Weakness, Fatigue HEENT: Reports: No Symptoms Pulmonary: Reports: Shortness of Breath. Denies: Cough, Sputum Cardiovascular: Denies: Chest Pain, Edema, Lightheadedness Gastrointestinal: Denies: Abdominal Pain, Nausea, Vomiting Genitourinary: Reports: No Symptoms Musculoskeletal: Reports: No Symptoms Skin: Reports: No Symptoms Neurological: Reports: No Symptoms Psychiatric: Reports: Anxiety - Patient Data Vitals - Most Recent: Last Vital Signs Temp 97.8 F 08/04/19 16:00 Pulse 96 08/04/19 19:33 Resp 20 08/04/19 16:00 BP 125/72 08/04/19 19:33 Pulse Ox 98 08/04/19 16:00 Weight - Most Recent: 195 lb 9.6 oz Med Orders - Current: Current Medications Acetaminophen (Tylenol) 650 mg PO Q4H PRN PRN Reason: Pain (Mild 1-3)/fever Last Admin: 08/04/19 21:01 Dose: 650 mg Carvedilol (Coreg) 3.125 mg PO BID [facility] Last Admin: 08/04/19 19:33 Dose: 3.125 mg Divalproex Sodium (Depakote Er) 500 mg PO TID [facility] Last Admin: 08/04/19 19:25 Dose: 500 mg Enoxaparin Sodium (Lovenox) 40 mg SUBCUT Q24H [facility] Last Admin: 08/04/19 11:59 Dose: 40 mg Gabapentin (Neurontin) 200 mg PO BID PRN PRN Reason: Pain Lisinopril (Prinivil) 5 mg PO DAILY [facility] Last Admin: 08/04/19 07:32 Dose: 5 mg Lorazepam (Ativan) 1 mg PO Q4H PRN PRN Reason: Anxiety Last Admin: 08/03/19 22:54 Dose: 1 mg Ownmed Buspirone ([Buspar] 1 Tab) 1 tab PO BID [facility] Last Admin: 08/04/19 19:33 Dose: 1 tab Risperidone (Risperidal) 1 mg PO ACBRKBED [facility] Last Admin: 08/04/19 19:34 Dose: 1 mg Sodium Chloride (Saline Flush) 10 ml FLUSH ASDIRECTED PRN PRN Reason: Keep Vein Open Spironolactone (Aldactone) 25 mg PO DAILY [facility] Last Admin: 08/04/19 07:32 Dose: 25 mg Torsemide (Demadex) 20 mg PO DAILY [facility] Last Admin: 08/04/19 07:33 Dose: 20 mg Trazodone HCl (Trazodone) 50 mg PO BEDTIME PRN PRN Reason: Sleep Discontinued Medications Divalproex Sodium (Depakote Er) 500 mg PO BID [facility] Stop: 08/02/19 20:01 Last Admin: 08/02/19 19:51 Dose: 500 mg Lorazepam (Ativan) 1 mg IVPUSH Q4H PRN PRN Reason: Anxiety Stop: 08/03/19 09:00 Last Admin: 08/02/19 22:41 Dose: 1 mg Ownmed Buspirone ([Buspar] 1 Tab) 1 tab PO BID PRN PRN Reason: Anxiety Risperidone (Risperidal) 1 mg PO ACBRKBED [facility] Last Admin: 08/03/19 07:43 Dose: 1 mg Risperidone (Risperidal) Confirm Administered Dose 1 mg .ROUTE .STK-MED ONE Stop: 08/03/19 07:52 Last Admin: 08/03/19 07:48 Dose: Not Given Sertraline HCl (Zoloft) 100 mg PO DAILY [facility] Last Admin: 08/02/19 11:26 Dose: Not Given Temazepam (Restoril) 15 mg PO BEDTIME PRN PRN Reason: Sleep Trazodone HCl (Trazodone) 50 mg PO BEDTIME [facility] Last Admin: 08/03/19 19:29 Dose: 50 mg - Exam General: Alert, Oriented HEENT: Mucous Membr. Moist/[place] Neck: Supple Lungs: Clear to Auscultation, Normal Respiratory Effort Cardiovascular: Regular Rate, Regular Rhythm GI/Abdominal Exam: Normal Bowel Sounds, Soft, Non-Tender Extremities: Normal Inspection, No Pedal Edema Skin: Warm, Dry Psy/Mental Status: Agitated - Problem List & Annotations (1) Bipolar I disorder with jess SNOMED Code(s): 02016714 Code(s): F31.10 - BIPOLAR DISORD, CRNT EPISODE MANIC W/O PSYCH FEATURES, UNSP Status: Acute Priority: High Current Visit: Yes - Problem List Review Problem List Initiated/Reviewed/Updated: Yes - My Orders Last 24 Hours: My Active Orders 08/04/19 09:40 Patient Status [ADT] Routine 08/05/19 05:11 VALPROIC ACID [REF] Routine - Assessment Assessment:: Bipolar Disorder with jess - Plan Plan:: Patient feels less anxious and restless today. States has "a lot of stressors in his life". Complaining of left shoulder pain this am. No recent injury, states has been bothering him for some time. Also has increased shortness of breath with activity. Did meet with Marcelle Tello yesterday afternoon, adjusted medications (restarted his Depakota and Risperdal) and started Buspar. Is tolerating them well. will arrange for PT to see patient for left shoulder pain. Continue meds per Marcelle. Social service consult for home plan as patient has been living in hotels and staying in his car. 08-04-2019 Patient resting comfortably. ADmits to shortness of breath at times with activity. Concerned of "mental instability". Patient has had long history of noncompliance with meds, deals with jess as a result. Admits he has been evicted 2 times in the past 6 months, has no living situation or family to help him. In and out of jobs. Does well when in structured setting but when out on his own, the anxiety "takes over his life" and eventually he stops taking his blood pressure pills and psychiatric meds. Marcelle Long in with myself when evaluating today. He does become more anxious and upset as discharge plan discussed. Is worried about his cardiac health due to his unstable mental health. community services officer has also met with patient. Has consulted with [facility] for evaluation for admit. Awaiting review. Will transfer to acute inpatient due to vulnerable adult as has no home, family and mental state is yet unstable.
[2019-08-05] MEDS: LORazepam 0.5 MG Tab PO PRN (06:25)
[2019-08-05] MEDS: risperiDONE 1 MG Tab PO SCH (06:38)
[2019-08-05] MEDS ORDERED: traZODone 50 MG Tab PO PRN (08:21)
[2019-08-05 08:24] VITALS: BP 111/72; PULSE 89
[2019-08-05] MEDS: Carvedilol 3.125 MG Tab PO SCH (08:24)
[2019-08-05] MEDS: Divalproex Sodium 250 MG Tab.ER PO SCH ×2 (08:24→14:30)
[2019-08-05] MEDS: BUSPIRONE PO SCH (08:28)
[2019-08-05] MEDS ORDERED: Spironolactone 25 MG Tab PO SCH (08:30)
[2019-08-05] MEDS ORDERED: Lisinopril 5 MG Tab PO SCH (08:30)
[2019-08-05] MEDS ORDERED: Gabapentin 100 MG Cap PO PRN (08:30)
[2019-08-05] MEDS ORDERED: Torsemide 20 MG Tab PO SCH (08:45)
[2019-08-05] MEDS: LISINOPRIL 5 MG PO SCH (10:33)
[2019-08-05] MEDS: SPIRONOLACTONE 25 MG PO SCH (10:33)
[2019-08-05] MEDS: Torsemide 20 MG Tab PO SCH (10:33)
[2019-08-05] MEDS: Enoxaparin 40 MG/0.4 ML Syringe SUBCUT SCH (11:39)
--- NOTE | 2019-08-05 14:24 | PCM.DCSUM1 ---
Discharge Summary - Hospital Course Free Text/Narrative:: Patient presented to ER with a plethora of complaints. Reported increased shortness of breath as unable to take his diuretics as he has been living in his car and "unable to sit on a toilet for 3 hours". Has been staying with friends/living in hotels and his car. Also admits he has not taken his Depakote for over a week. In obvious manic phase when presented, difficult to follow due to flight of ideas, grandiose thoughts. He reports he was in the ER in [place] 2 days prior due to left shoulder pain. Was "hyped up" and required Ativan drip. 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 Has been taking his Lorazepam and Risperdal as well as his Sertraline that he does have managed by Dr. George at the [facility]. In ER, asking how he could get admitted to a correction as he has no support system or family and "is short of breath from his cardiomyopathy". Has seen a stonework supervisor recently, due for echocardiogram in August. His ProBNP was 700 a week ago. His ProBNP now 1200 but chest xray clear, oxygen sats 100% and lung sounds are clear. Dr. Lam also down to ER to consult with patient as is usual primary care provider. Suggest admission here to start his diuretics, depakote and consult with Marcelle Tello. 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 but denies any use of this for "several years" Diagnosis: Stroke: No Modified Macrina Scale: No Symptoms at All Modified Leola Scale Score: 0 - Discharge Data Discharge Date: 08/05/19 Discharge Disposition: Home, Self-Care 01 Condition: Good - Referral to Home Health Primary Care Physician: PCP Unknown - Discharge Diagnosis/Problem(s) (1) Bipolar I disorder with jerrod SNOMED Code(s): 71089429 ICD Code: F31.10 - BIPOLAR DISORD, CRNT EPISODE MANIC W/O PSYCH FEATURES, UNSP Status: Acute Priority: High - Patient Summary/Data Consults: Consultations 08/02/19 09:46 Consult to Physician [CONS] Routine 08/03/19 08:46 Consult to Physical Therapy [PT Evaluation and Treatment] [CONS] Routine 08/03/19 08:53 Consult to Case Management/Cotton Breeder [CONS] Routine Hospital Course: Patient does continue to have issues with jerrod but has improved since admission. Was restarted on his diuretics and has been voiding well. Appetite has been good. Has been sleeping very well. He was restarted on his Depakote while here, Depakote level has been sent. He was started on BID Buspar, has taken this as needed in the past, feels it is helping him. Continues to complain of left shoulder pain, had felt couldn't care for himself because of this and his shortness of breath related to his cardiomyopathy. PT did evaluate his shoulder, does not feel skilled care is needed while here for this. Lung sounds have remained clear, oxygen levels 98-100% on room air. He has been ambulating in the halls and tolerating well. Each day, patient is also seen by Marcelle Tello. Will see her as well as an outpatient. Met with social work manager as we had concerns about patient rebounding if out on his own without any support or living quarters. She did contact [facility] but patient does not qualify for skilled care. Did arrange for an application for an apartment with cost [employer]. He is worried as he "has no belongings, no money and no support and has been evicted x2 in the past". He states meeting with social work manager causes more anxiety. He had felt he had filed all the paperwork for Medicaid with social work manager in [facility] but we no papers had been filed. Patient did talk with his friend and sometimes employer who has agreed to let the patient stay with him in his camper for now until he can arrange to get an apartment or services. Continues to have flight of ideas and grandiose thoughts but is not tremoring as much, speech is not as excitable as it had been. Will meet with Dr. Lam and Marcelle Tello next week. - Patient Instructions Diet: Usual Diet as Tolerated Activity: As Tolerated - Discharge Plan *PRESCRIPTION DRUG MONITORING PROGRAM REVIEWED*: Not Applicable *COPY OF PRESCRIPTION DRUG MONITORING REPORT IN PATIENT YOVANNY: Not Applicable Prescriptions/Med Rec: Divalproex Sodium [Depakote ER] 500 mg PO TID #90 tab.sr.24h Home Medications: Home Meds Carvedilol 1 tab PO BID 08/02/19 [History] Gabapentin [Neurontin] 2 tab PO BID PRN 08/02/19 [History] Lisinopril 1 tab PO DAILY 08/02/19 [History] Spironolactone [Aldactone] 1 tab PO DAILY 08/02/19 [History] Torsemide 1 tab PO DAILY 08/02/19 [History] Divalproex Sodium [Depakote ER] 500 mg PO TID #90 tab.sr.24h 08/05/19 [Rx] LORazepam 1 tab PO BID PRN #60 08/05/19 [Rx] busPIRone [Buspar] 1 tab PO BID #60 08/05/19 [Rx] risperiDONE [RisperiDAL] 1 mg PO BEDTIME #30 08/05/19 [Rx] Forms: ED Department Discharge Referrals: Marcelle Tello RN, [employer] [Nurse Practitioner] - (See Marcelle next for follow up) Yuriy Lam MD [ED Physician] - (Hospital follow up on with Dr. Lam) - Discharge Summary/Plan Comment DC Time >30 min.: No - General Info Date of Service: 08/05/19 Admission Dx/Problem (Free Text: Admission Diagnosis/Problem Admission Diagnosis/Problem Jerrod Functional Status: Reports: Pain Controlled, Tolerating Diet, Ambulating - Review of Systems General: Denies: Fever, Weakness, Fatigue HEENT: Reports: No Symptoms Pulmonary: Reports: Shortness of Breath. Denies: Cough Cardiovascular: Denies: Chest Pain, Edema, Lightheadedness Gastrointestinal: Denies: Abdominal Pain, Nausea, Vomiting Genitourinary: Reports: No Symptoms Musculoskeletal: Reports: Shoulder Pain Skin: Reports: No Symptoms Neurological: Reports: No Symptoms Psychiatric: Reports: Anxiety, Agitation - Patient Data Vitals - Most Recent: Last Vital Signs Temp 95.9 F 08/05/19 08:00 Pulse 89 08/05/19 08:24 Resp 16 08/05/19 08:00 BP 111/72 08/05/19 08:28 Pulse Ox 100 08/05/19 08:00 Weight - Most Recent: 195 lb 9.6 oz Med Orders - Current: Current Medications Acetaminophen (Tylenol) 650 mg PO Q4H PRN PRN Reason: Pain (Mild 1-3)/fever Last Admin: 08/04/19 21:01 Dose: 650 mg Carvedilol (Coreg) 3.125 mg PO BID ANTELMO Last Admin: 08/05/19 08:24 Dose: 3.125 mg Divalproex Sodium (Depakote Er) 500 mg PO TID [facility] Last Admin: 08/05/19 08:24 Dose: 500 mg Enoxaparin Sodium (Lovenox) 40 mg SUBCUT Q24H [facility] Last Admin: 08/05/19 11:39 Dose: 40 mg Gabapentin (Neurontin) 200 mg PO BID PRN PRN Reason: Pain Lisinopril (Prinivil) 5 mg PO DAILY [facility] Last Admin: 08/05/19 08:28 Dose: 5 mg Lorazepam (Ativan) 1 mg PO Q4H PRN PRN Reason: Anxiety Last Admin: 08/05/19 06:25 Dose: 1 mg Ownmed Buspirone ([Buspar] 1 Tab) 1 tab PO BID [facility] Last Admin: 08/05/19 08:28 Dose: 1 tab Risperidone (Risperidal) 1 mg PO ACBRKBED [facility] Last Admin: 08/05/19 06:38 Dose: 1 mg Sodium Chloride (Saline Flush) 10 ml FLUSH ASDIRECTED PRN PRN Reason: Keep Vein Open Spironolactone (Aldactone) 25 mg PO DAILY [facility] Last Admin: 08/05/19 08:29 Dose: 25 mg Torsemide (Demadex) 20 mg PO DAILY [facility] Last Admin: 08/05/19 10:23 Dose: 20 mg Trazodone HCl (Trazodone) 50 mg PO BEDTIME PRN PRN Reason: Sleep Discontinued Medications Divalproex Sodium (Depakote Er) 500 mg PO BID [facility] Stop: 08/02/19 20:01 Last Admin: 08/02/19 19:51 Dose: 500 mg Gabapentin (Neurontin) 200 mg PO BID PRN PRN Reason: Pain Lisinopril (Prinivil) 5 mg PO DAILY [facility] Last Admin: 08/05/19 10:33 Dose: Not Given Lorazepam (Ativan) 1 mg IVPUSH Q4H PRN PRN Reason: Anxiety Stop: 08/03/19 09:00 Last Admin: 08/02/19 22:41 Dose: 1 mg Ownmed Buspirone ([Buspar] 1 Tab) 1 tab PO BID PRN PRN Reason: Anxiety Risperidone (Risperidal) 1 mg PO ACBRKBED [facility] Last Admin: 08/03/19 07:43 Dose: 1 mg Risperidone (Risperidal) Confirm Administered Dose 1 mg .ROUTE .STK-MED ONE Stop: 08/03/19 07:52 Last Admin: 08/03/19 07:48 Dose: Not Given Sertraline HCl (Zoloft) 100 mg PO DAILY [facility] Last Admin: 08/02/19 11:26 Dose: Not Given Spironolactone (Aldactone) 25 mg PO DAILY [facility] Last Admin: 08/05/19 10:33 Dose: Not Given Temazepam (Restoril) 15 mg PO BEDTIME PRN PRN Reason: Sleep Torsemide (Demadex) 20 mg PO DAILY [facility] Last Admin: 08/05/19 10:33 Dose: Not Given Trazodone HCl (Trazodone) 50 mg PO BEDTIME [facility] Last Admin: 08/03/19 19:29 Dose: 50 mg Trazodone HCl (Trazodone) 50 mg PO BEDTIME PRN PRN Reason: Sleep - Exam General: Reports: Alert, Oriented HEENT: Reports: Mucous Membr. Moist/[place] Neck: Reports: Supple Lungs: Reports: Clear to Auscultation, Normal Respiratory Effort Cardiovascular: Reports: Regular Rate, Regular Rhythm GI/Abdominal Exam: Normal Bowel Sounds, Soft, Non-Tender Extremities: Normal Inspection, No Pedal Edema Skin: Reports: Warm, Dry Neurological: Reports: No New Focal Deficit Psy/Mental Status: Reports: Anxious
== END 2019-08-05 15:05 | disposition home or self-care (01) | DRG 885 ==
LOC: CC.ED 07:35 → CC.MS 09:15 → UNDOADMOB 09:40 → CC.MS 09:40 → OBSVTOIN 08-04 09:40
PROVIDERS: ADMIT Nurse Practitioner Family; ATTEND Family Medicine
DX: F31.12 Bipolar disorder, current episode manic without psychotic features, moderate (principal); I42.9 Cardiomyopathy, unspecified; M25.512 Pain in left shoulder; J44.9 Chronic obstructive pulmonary disease, unspecified; F41.9 Anxiety disorder, unspecified; I11.0 Hypertensive heart disease with heart failure; I50.9 Heart failure, unspecified; F19.90 Other psychoactive substance use, unspecified, uncomplicated; F15.90 Other stimulant use, unspecified, uncomplicated; R45.1 Restlessness and agitation; Z91.14 Patient's other noncompliance with medication regimen; Z79.899 Other long term (current) drug therapy; Z98.890 Other specified postprocedural states; Z59.0 Homelessness
CPT/HCPCS: 36415; 71046; 80048; 80164; 80305-QW; 81003; 82550; 83880; 84484; 85025; 86140; 93005; 93010; 96372; 96374; 96376; 97110-GP; 97161-GP; 99285-25; A9270-GY; G0378; J1650; J2060

== ENCOUNTER 2019-09-09 20:38 | Emergency (ER) | payer MEDICARE ==
--- NOTE | 2019-09-09 21:35 | EDM.PDOCBH ---
ED HPI GENERAL MEDICAL PROBLEM - General Chief Complaint: Behavioral/Psych Stated Complaint: "Seeing spiders and attacking me" Time Seen by Provider: 09/09/19 21:33 Source of Information: Reports: Patient History Limitations: Reports: No Limitations - History of Present Illness INITIAL COMMENTS - FREE TEXT/NARRATIVE: This patient is a 59 year old patient well known to the facility. Patient has been seeing his PCP and psych, he has had some medication changes. Patient the last 3 days has been added on prozac, clonazepam. He stopped lorazepam. And went BID on Buspar and Risperidal in mid jul. The patient reports that for the past 3-4 days having bug sensation crawling on his body, agitated, tremors, shaking, crying. He denies suicidal and homicidal ideations. He reports it is due to his medications. Onset Date: 09/05/19 Duration: Day(s): (4) Severity: Moderate Improves with: Reports: None Worsens with: Reports: None Associated Symptoms: Reports: Malaise. Denies: Confusion, Chest Pain, Cough, cough w sputum, Diaphoresis, Fever/Chills, Headaches, Loss of Appetite, Nausea/ Vomiting, Rash, Seizure, Shortness of Breath, Syncope, Weakness - Related Data Allergies Allergy/AdvReac Type Severity Reaction Status Date / Time No Known Allergies Allergy Verified 09/09/19 21:26 Home Meds: Home Meds Carvedilol 1 tab PO BID 08/02/19 [History] Gabapentin [Neurontin] 2 tab PO BID PRN 08/02/19 [History] Lisinopril 1 tab PO DAILY 08/02/19 [History] Spironolactone [Aldactone] 1 tab PO DAILY 08/02/19 [History] Torsemide 1 tab PO DAILY 08/02/19 [History] Divalproex Sodium [Depakote ER] 500 mg PO TID #90 tab.sr.24h 08/05/19 [Rx] LORazepam 1 tab PO BID PRN #60 08/05/19 [Rx] busPIRone [Buspar] 1 tab PO BID #60 08/05/19 [Rx] risperiDONE [RisperiDAL] 1 mg PO BEDTIME #30 08/05/19 [Rx] Past Medical History HEENT History: Reports: Otitis Media Cardiovascular History: Reports: Hypertension Respiratory History: Reports: COPD Musculoskeletal History: Reports: Other (See Below) Other Musculoskeletal History: L shoulder pain last 3 months- previous dx rotator cuff issues had x rays Psychiatric History: Reports: Addiction, Anxiety, Bipolar, Depression Other Psychiatric History: Patient has experienced multiple hospitalizations over the years since being diagonised with bipolar disorder in 1999. He reports hospitalization at the [facility] and at [facility]. Patient believes he has had under 10 hospitalizations over the years but is unable to remember them all. Patient states he has been receiving outpatient services through [facility] off and on through 1999 but that it is difficult at time to make his appointments. Past medication history includes: Buproprione (states it didn't work), Quetiapine (made him tired), Clonazepam (states it was helpful and calmed him), Duloxetine (states it didn't work), Zirprasidone (reports became sick once at theraputic level), and Lamotrigine (pt states he developed a rash). - Past Surgical History Male Surgical History: Reports: Other (See Below) Other Male Surgeries/Procedures: "hydrocele surgery" Neurological Surgical History: Reports: Laminectomy Musculoskeletal Surgical History: Reports: Other (See Below) Other Musculoskeletal Surgeries/Procedures:: meniscus repair to L knee Social & Family History - Family History Family Medical History: Noncontributory ED ROS GENERAL - Review of Systems Review Of Systems: See Below Constitutional: Reports: No Symptoms HEENT: Reports: No Symptoms Respiratory: Reports: No Symptoms Cardiovascular: Reports: No Symptoms Endocrine: Reports: No Symptoms GI/Abdominal: Reports: No Symptoms : Reports: No Symptoms Musculoskeletal: Reports: No Symptoms Skin: Reports: No Symptoms Neurological: Reports: No Symptoms Psychiatric: Reports: Agitation, Anxiety, Depression, Mood Lability, Other ( "sensation spiders crawling all over me"). Denies: Homicidal Ideation, Suicidal Ideation Hematologic/Lymphatic: Reports: No Symptoms Immunologic: Reports: No Symptoms ED EXAM, BEHAVIORAL HEALTH - Physical Exam Exam: See Below Exam Limited By: No Limitations General Appearance: Alert, WD/WN, No Apparent Distress Eye Exam: Bilateral Eye: EOMI, Normal Inspection, PERRL Ears: Normal External Exam, Normal Canal, Hearing Grossly Normal, Normal TMs Nose: Normal Inspection, Normal Mucosa, No Blood Throat/Mouth: Normal Inspection, Normal Lips, Normal Teeth, Normal Gums, Normal Oropharynx, Normal Voice, No Airway Compromise Head: Atraumatic, Normocephalic Neck: Normal Inspection, Supple, Non-Tender, Full Range of Motion Respiratory/Chest: No Respiratory Distress, Lungs Clear, Normal Breath Sounds, No Accessory Muscle Use, Chest Non-Tender Cardiovascular: Normal Peripheral Pulses, Regular Rate, Rhythm, No Edema, No Gallop, No JVD, No Murmur, No Rub GI/Abdominal: Normal Bowel Sounds, Soft, Non-Tender, No Organomegaly, No Distention, No Abnormal Bruit, No Mass, Pelvis Stable (Male) Exam: Deferred Rectal (Males) Exam: Deferred Back Exam: Normal Inspection, Full Range of Motion Extremities: Normal Inspection, Normal Range of Motion, Non-Tender, No Pedal Edema, Normal Capillary Refill Neurological: Alert, CN II-XII Intact, Normal Cognition, Normal Gait, No Motor/ Sensory Deficits, Oriented x 3, Abnormal Reflexes (Hyperreflexia patellar bilateral, left greater than right. ), Tremor (generalized mild. ), Other (mild/ subtle inducible clonus bialteral hands.). No: Normal Reflexes Psychiatric: Alert, Tearful, Other (sporadic speech and behavior. Tearful to not tearful. Talking fast at times. ). No: Homicidal Thoughts, Suicidal Plan, Suicidal Thoughts Skin Exam: Warm, Dry, Intact, Normal color, No rash COURSE, BEHAVIORAL HEALTH COMP - Course Orders, Labs, Meds: Active Orders 24 hr Category Date Time Status VALPROIC ACID [REF] Stat Lab 09/09/19 21:39 Received Laboratory Tests 09/09/19 09/09/19 09/09/19 Range/Units 21:15 21:15 21:15 WBC 6.4 (5.0-10.0) 10^3/uL RBC 4.45 L (4.50-6.00) 10^6/uL Hgb 13.3 L (14.0-18.0) g/dL Hct 38.4 L (40.0-54.0) % MCV 86.3 (82.0-94.0) fL MCH 29.9 (27.0-32.0) pg MCHC 34.6 (33.0-38.0) g/dL RDW Coeff of Blue 12.8 (11.0-15.0) % Plt Count 295 (150-400) 10^3/uL Neut % (Auto) 39.6 (35-85) % Lymph % (Auto) 35.6 (10-55) % Haskell % (Auto) 12.0 (0-16) % Eos % (Auto) 12.0 H (0-5) % Baso % (Auto) 0.8 (0-3) % Neut # (Auto) 2.53 (1.80-7.00) 10^3/uL Lymph # (Auto) 2.28 (1.00-4.80) 10^3/uL Haskell # (Auto) 0.77 (0.00-0.80) 10^3/uL Eos # (Auto) 0.77 H (0.00-0.45) 10^3/uL Baso # (Auto) 0.05 10^3/uL Sodium 141 (136-145) mEq/L Potassium 4.1 (3.5-5.0) mEq/L Chloride 102 (98-106) mEq/L Carbon Dioxide 32 (21-32) mmol/L BUN 29 H (7-18) mg/dL Creatinine 0.9 (0.7-1.3) mg/dL Est Cr Clr Drug Dosing TNP Estimated GFR (MDRD) > 60 (>=60) mL/min Glucose 93 (75-99) mg/dL Calcium 9.0 (8.4-10.1) mg/dL Total Bilirubin 0.2 (0.0-1.0) mg/dL AST 14 L (15-37) U/L ALT 19 (12-78) U/L Alkaline Phosphatase 77 (46-116) U/L Total Protein 7.1 (6.4-8.2) g/dL Albumin 3.5 (3.4-5.0) g/dL Urine Color (YELLOW) Urine Appearance (CLEAR) Urine pH (4.5-8.0) Ur Specific [place] (1.003-1.020) Urine Protein (NEGATIVE) mg/dL Urine Glucose (UA) (NEGATIVE) mg/dL Urine Ketones (NEGATIVE) mg/dL Urine Occult Blood (NEGATIVE) Urine Nitrite (NEGATIVE) Urine Bilirubin (NEGATIVE) Urine Urobilinogen (0.2-1.0) EU/dL Ur Leukocyte Esterase (NEGATIVE) Urine Opiates Screen Negative (NEGATIVE) Ur Oxycodone Screen Negative (NEGATIVE) Urine Methadone Screen Negative (NEGATIVE) Ur Barbiturates Screen Negative (NEGATIVE) U Tricyclic Antidepress Negative (NEGATIVE) Ur Phencyclidine Scrn Negative (NEGATIVE) Ur Amphetamine Screen Negative (NEGATIVE) U Methamphetamines Scrn Negative (NEGATIVE) Urine MDMA Screen Negative (NEGATIVE) U Benzodiazepines Scrn Negative (NEGATIVE) Urine Cocaine Screen Negative (NEGATIVE) U Marijuana (THC) Screen Negative (NEGATIVE) Ethyl Alcohol < 3 (0-3) mg/dL 09/09/19 Range/Units 21:32 WBC (5.0-10.0) 10^3/uL RBC (4.50-6.00) 10^6/uL Hgb (14.0-18.0) g/dL Hct (40.0-54.0) % MCV (82.0-94.0) fL MCH (27.0-32.0) pg MCHC (33.0-38.0) g/dL RDW Coeff of Blue (11.0-15.0) % Plt Count (150-400) 10^3/uL Neut % (Auto) (35-85) % Lymph % (Auto) (10-55) % Haskell % (Auto) (0-16) % Eos % (Auto) (0-5) % Baso % (Auto) (0-3) % Neut # (Auto) (1.80-7.00) 10^3/uL Lymph # (Auto) (1.00-4.80) 10^3/uL Haskell # (Auto) (0.00-0.80) 10^3/uL Eos # (Auto) (0.00-0.45) 10^3/uL Baso # (Auto) 10^3/uL Sodium (136-145) mEq/L Potassium (3.5-5.0) mEq/L Chloride (98-106) mEq/L Carbon Dioxide (21-32) mmol/L BUN (7-18) mg/dL Creatinine (0.7-1.3) mg/dL Est Cr Clr Drug Dosing Estimated GFR (MDRD) (>=60) mL/min Glucose (75-99) mg/dL Calcium (8.4-10.1) mg/dL Total Bilirubin (0.0-1.0) mg/dL AST (15-37) U/L ALT (12-78) U/L Alkaline Phosphatase (46-116) U/L Total Protein (6.4-8.2) g/dL Albumin (3.4-5.0) g/dL Urine Color Yellow (YELLOW) Urine Appearance Clear (CLEAR) Urine pH 6.5 (4.5-8.0) Ur Specific [place] 1.015 (1.003-1.020) Urine Protein Negative (NEGATIVE) mg/dL Urine Glucose (UA) Negative (NEGATIVE) mg/dL Urine Ketones Negative (NEGATIVE) mg/dL Urine Occult Blood Negative (NEGATIVE) Urine Nitrite Negative (NEGATIVE) Urine Bilirubin Negative (NEGATIVE) Urine Urobilinogen 0.2 (0.2-1.0) EU/dL Ur Leukocyte Esterase Negative (NEGATIVE) Urine Opiates Screen (NEGATIVE) Ur Oxycodone Screen (NEGATIVE) Urine Methadone Screen (NEGATIVE) Ur Barbiturates Screen (NEGATIVE) U Tricyclic Antidepress (NEGATIVE) Ur Phencyclidine Scrn (NEGATIVE) Ur Amphetamine Screen (NEGATIVE) U Methamphetamines Scrn (NEGATIVE) Urine MDMA Screen (NEGATIVE) U Benzodiazepines Scrn (NEGATIVE) Urine Cocaine Screen (NEGATIVE) U Marijuana (THC) Screen (NEGATIVE) Ethyl Alcohol (0-3) mg/dL Medications Discontinued Medications Generic Name Dose Route Start Last Admin Trade Name Viola PRN Reason Stop Dose Admin Diazepam 5 mg 09/09/19 21:37 09/09/19 21:43 Valium IM 09/09/19 21:38 5 mg ONETIME ONE Administration Discharge vs Psych Eval/Treatment:: 09/09/19 22:10 Patient is homicidal or suicidal. The patient does meet clinical criteria for serotonin syndrome mild with clonus, tremor, and hyperreflexia. This is a possible differential. I have spoken to Marcelle kumar about this patient, she would like him to stop his Buspar and only take Risperidal at bedtime. I have discussed with the patient his symptoms and possible differential diagnosis and his medications, and the plan of care. He reports it makes him feel much better. He will be discharged home and to followup with psych and PCP Thursday. Departure - Departure Time of Disposition: 22:12 Disposition: Home, Self-Care 01 Condition: Fair Clinical Impression: Serotonin syndrome - Discharge Information *PRESCRIPTION DRUG MONITORING PROGRAM REVIEWED*: No *COPY OF PRESCRIPTION DRUG MONITORING REPORT IN PATIENT YOVANNY: No Instructions: Serotonin Syndrome Forms: ED Department Discharge Additional Instructions: Followup with Dr Lam early next week Followup with Marcelle early next week Stop taking Buspar Take Risperidal 1mg at bedtime : Stop during the day Return to the ER for emergencies as needed - My Orders Last 24 Hours: My Active Orders 09/09/19 21:39 VALPROIC ACID [REF] Stat - Assessment/Plan Last 24 Hours: My Active Orders 09/09/19 21:39 VALPROIC ACID [REF] Stat Plan: PLEASE SEE RN NOTE FOR PFSH.
[2019-09-09 21:41] LABS: CHLORIDE,CL 102 mEq/L (98-106); SODIUM,NA 141 mEq/L (136-145)
[2019-09-09 23:46] VITALS: BP 135/67; PULSE 76
== END 2019-09-09 22:20 | disposition home or self-care (01) ==
LOC: CC.ED 20:38
DX: T43.221A Poisoning by selective serotonin reuptake inhibitors, accidental (unintentional), initial encounter (principal); I10 Essential (primary) hypertension; J44.9 Chronic obstructive pulmonary disease, unspecified; Z79.899 Other long term (current) drug therapy
CPT/HCPCS: 80053; 80164; 80305-QW; 81003; 85025; 96372; 99284; G0480; J3360

== ENCOUNTER 2020-12-17 06:07 | Emergency (ER) | payer MEDICARE, MEDICAID ==
[2020-12-17] MEDS: fentaNYL 100 MCG/2 ML SDV IVPUSH PRN ×2 (06:27→08:04)
[2020-12-17] MEDS ORDERED: Alum Hydrox/Mag Hydrox/Simeth 30 ML, Lidocaine 2% 15 ML PO ONE ×2 (06:49)
[2020-12-17] MEDS ORDERED: Ondansetron 4 MG/2 ML SDV IVPUSH ONE (06:49)
[2020-12-17] MEDS ORDERED: fentaNYL 100 MCG/2 ML SDV IVPUSH ONE (06:53)
--- NOTE | 2020-12-17 07:08 | EDM.PDOC ---
ED HPI GENERAL MEDICAL PROBLEM - General Chief Complaint: General Stated Complaint: abdominal pain Time Seen by Provider: 12/17/20 06:35 Source of Information: Reports: Patient, RN History Limitations: Reports: Uncooperative - History of Present Illness INITIAL COMMENTS - FREE TEXT/NARRATIVE: Nash is a 60 year old male who presents per EMS with complaints of upper quadrant pain. States started last evening. Had eaten "a rich stew" for supper but also relates has been "deteriorating lately and have had this pain off an on for a while". Nausea with vomiting x2. Persistent upper quadrant pain. Very difficult to obtain history as patient only lays and moans and does not want to answer questions "afraid it will make me vomit again". No fevers. Had BM yesterday. No blood in stools or emesis. Has had increased heartburn as of late. Rated pain at an 8 on arrival, now a 5-6 after pain med. Denies any known history of gallbladder disease Onset: Gradual Duration: Hour(s):, Constant Location: Reports: Abdomen Quality: Reports: Sharp Severity: Severe Associated Symptoms: Reports: Nausea/Vomiting. Denies: Confusion, Chest Pain, Cough, Fever/Chills, Headaches, Loss of Appetite, Malaise, Shortness of Breath Upper Abdomen Pain Score (Numeric/FACES): 8 - Related Data Allergies Allergy/AdvReac Type Severity Reaction Status Date / Time No Known Allergies Allergy Verified 12/17/20 07:30 Home Meds: Home Meds Spironolactone [Aldactone] 1 tab PO DAILY 08/02/19 [History] Torsemide 1 tab PO DAILY 08/02/19 [History] carvediloL [Carvedilol] 1 tab PO BID 08/02/19 [History] lisinopriL [Lisinopril] 1 tab PO DAILY 08/02/19 [History] risperiDONE [RisperiDAL] 1 mg PO BEDTIME #30 08/05/19 [Rx] Divalproex Sodium [Depakote ER] 500 mg PO ASDIRECTED 08/09/20 [History] Divalproex Sodium [Divalproex Sodium ER] 1,000 mg PO BEDTIME 08/09/20 [History] FLUoxetine HCl [Prozac] 20 mg PO DAILY 08/09/20 [History] clonazePAM [Clonazepam] 0.5 mg PO Q8HR PRN 08/09/20 [History] diphenhydrAMINE HCL [Benadryl Allergy] 50 mg PO BEDTIME 08/09/20 [History] Past Medical History HEENT History: Reports: Otitis Media Cardiovascular History: Reports: Hypertension Respiratory History: Reports: COPD Musculoskeletal History: Reports: Other (See Below) Other Musculoskeletal History: L shoulder pain last 3 months- previous dx rotator cuff issues had x rays Psychiatric History: Reports: Addiction, Anxiety, Bipolar, Depression Other Psychiatric History: Patient has experienced multiple hospitalizations over the years since being diagonised with bipolar disorder in 1999. He reports hospitalization at the [facility] and at [facility]. Patient believes he has had under 10 hospitalizations over the years but is unable to remember them all. Patient states he has been receiving outpatient services through [facility] off and on through 1999 but that it is difficult at time to make his appointments. Past medication history includes: Buproprione (states it didn't work), Quetiapine (made him tired), Clonazepam (states it was helpful and calmed him), Duloxetine (states it didn't work), Zirprasidone (reports became sick once at theraputic level), and Lamotrigine (pt states he developed a rash). - Past Surgical History Male Surgical History: Reports: Other (See Below) Other Male Surgeries/Procedures: "hydrocele surgery" Neurological Surgical History: Reports: Laminectomy Musculoskeletal Surgical History: Reports: Other (See Below) Other Musculoskeletal Surgeries/Procedures:: meniscus repair to L knee Social & Family History - Family History Family Medical History: No Pertinent Family History - Tobacco Use Tobacco Use Status *Q: Unknown Ever Used Tobacco ED ROS GENERAL - Review of Systems Review Of Systems: See Below (winelin and moans with all areas of exam, including ears, nose and throat. Asked if caused pain "states just very sensitive") Constitutional: Reports: Malaise. Denies: Fever, Chills, Weakness, Fatigue, Decreased Appetite HEENT: Denies: Ear Pain, Sinus Problem, Throat Pain Respiratory: Denies: Shortness of Breath, Cough Cardiovascular: Denies: Chest Pain, Edema, Lightheadedness Endocrine: Denies: Fatigue GI/Abdominal: Reports: Abdominal Pain, Nausea, Vomiting. Denies: Constipation, Diarrhea : Denies: Dysuria, Frequency, Urgency Musculoskeletal: Reports: No Symptoms Skin: Reports: No Symptoms Neurological: Reports: No Symptoms Psychiatric: Reports: Anxiety ED EXAM, GENERAL - Physical Exam Exam: See Below Exam Limited By: No Limitations General Appearance: Alert, Anxious, Moderate Distress Eye Exam: Bilateral Eye: PERRL Ears: Normal External Exam, Normal TMs Nose: Normal Inspection, Normal Mucosa, No Blood Throat/Mouth: Normal Inspection, Normal Oropharynx Head: Normocephalic Neck: Normal Inspection, Supple, Non-Tender Respiratory/Chest: No Respiratory Distress, Lungs Clear, Normal Breath Sounds Cardiovascular: Regular Rate, Rhythm GI/Abdominal: Normal Bowel Sounds, Soft, No Distention, Tender (bilateral upper quadrants) Extremities: Normal Inspection, No Pedal Edema Neurological: Alert, Oriented Skin Exam: Warm, Dry Course - Vital Signs Last Recorded V/S: Last Vital Signs Temp 98.1 F 12/17/20 06:08 Pulse 100 12/17/20 06:08 Resp 18 12/17/20 06:08 BP 127/79 12/17/20 06:08 Pulse Ox 96 12/17/20 06:08 - Orders/Labs/Meds Orders: Active Orders 24 hr Category Date Time Status Abdomen 2V AP Flat Upright [CR] Stat Exams 12/17/20 06:41 Taken Abdomen Pelvis w Cont [CT] Stat Exams 12/17/20 07:31 Taken CHLAMYDIA AND GONORRHEA BY TMA Stat Lab 12/17/20 07:56 Received CULTURE URINE [RM] Stat Lab 12/17/20 08:09 Received fentaNYL [Sublimaze] Med 12/17/20 06:21 Active 25 mcg IVPUSH Q6H PRN Medication Orders Fentanyl (Sublimaze) 25 mcg IVPUSH Q6H PRN PRN Reason: Abdominal Pain Last Admin: 12/17/20 08:04 Dose: 25 mcg Documented by: Admin: 12/17/20 06:27 Dose: 25 mcg Documented by: SVITLANA Labs: Laboratory Tests 12/17/20 12/17/20 12/17/20 Range/Units 06:19 06:19 06:19 WBC 9.0 (5.0-10.0) 10^3/uL RBC 5.30 (4.50-6.00) 10^6/uL Hgb 15.0 (14.0-18.0) g/dL Hct 43.4 (40.0-54.0) % MCV 81.9 L (82.0-94.0) fL MCH 28.3 (27.0-32.0) pg MCHC 34.6 (33.0-38.0) g/dL RDW Coeff of Blue 12.4 (11.0-15.0) % Plt Count 330 (150-400) 10^3/uL Neut % (Auto) 90.2 H (35-85) % Lymph % (Auto) 3.8 L (10-55) % Harlan % (Auto) 4.4 (0-16) % Eos % (Auto) 1.6 (0-5) % Baso % (Auto) 0 (0-3) % Neut # (Auto) 8.11 H (1.80-7.00) 10^3/uL Lymph # (Auto) 0.34 L (1.00-4.80) 10^3/uL Harlan # (Auto) 0.40 (0.00-0.80) 10^3/uL Eos # (Auto) 0.14 (0.00-0.45) 10^3/uL Baso # (Auto) 0.00 10^3/uL Sodium 139 (136-145) mEq/L Potassium 4.0 (3.5-5.0) mEq/L Chloride 99 (98-106) mEq/L Carbon Dioxide 27 (21-32) mmol/L BUN 23 H (7-18) mg/dL Creatinine 0.9 (0.7-1.3) mg/dL Est Cr Clr Drug Dosing 90.12 mL/min Estimated GFR (MDRD) > 60 (>=60) mL/min Glucose 116 H (75-99) mg/dL Calcium 9.6 (8.4-10.1) mg/dL Total Bilirubin 0.6 (0.0-1.0) mg/dL AST 22 (15-37) U/L ALT 23 (12-78) U/L Alkaline Phosphatase 93 (46-116) U/L C-Reactive Protein 1.8 H (0.2-0.8) mg/dL Total Protein 7.8 (6.4-8.2) g/dL Albumin 3.6 (3.4-5.0) g/dL Amylase 39 (25-115) U/L Lipase 56 L (73-393) U/L Urine Color Yellow (YELLOW) Urine Appearance Clear (CLEAR) Urine pH >= 9.0 H (4.5-8.0) Ur Specific [place] 1.015 (1.003-1.020) Urine Protein 100 H (NEGATIVE) mg/dL Urine Glucose (UA) Negative (NEGATIVE) mg/dL Urine Ketones Negative (NEGATIVE) mg/dL Urine Occult Blood Negative (NEGATIVE) Urine Nitrite Negative (NEGATIVE) Urine Bilirubin Negative (NEGATIVE) Urine Urobilinogen 0.2 (0.2-1.0) EU/dL Ur Leukocyte Esterase Large H (NEGATIVE) Urine RBC Not seen (0-5) /HPF Urine WBC 50-75 H (0-5) /HPF Urine WBC Clumps Few H (NOT SEEN) /HPF Urine Bacteria Few H (NOT SEEN) /HPF Urinalysis Comment Urine Opiates Screen (NEGATIVE) Ur Oxycodone Screen (NEGATIVE) Urine Methadone Screen (NEGATIVE) Ur Barbiturates Screen (NEGATIVE) U Tricyclic Antidepress (NEGATIVE) Ur Phencyclidine Scrn (NEGATIVE) Ur Amphetamine Screen (NEGATIVE) U Methamphetamines Scrn (NEGATIVE) Urine MDMA Screen (NEGATIVE) U Benzodiazepines Scrn (NEGATIVE) Urine Cocaine Screen (NEGATIVE) U Marijuana (THC) Screen (NEGATIVE) SARS CoV-2 RNA Rapid MONIKA (NEGATIVE) 12/17/20 12/17/20 Range/Units 06:21 07:07 WBC (5.0-10.0) 10^3/uL RBC (4.50-6.00) 10^6/uL Hgb (14.0-18.0) g/dL Hct (40.0-54.0) % MCV (82.0-94.0) fL MCH (27.0-32.0) pg MCHC (33.0-38.0) g/dL RDW Coeff of Blue (11.0-15.0) % Plt Count (150-400) 10^3/uL Neut % (Auto) (35-85) % Lymph % (Auto) (10-55) % Harlan % (Auto) (0-16) % Eos % (Auto) (0-5) % Baso % (Auto) (0-3) % Neut # (Auto) (1.80-7.00) 10^3/uL Lymph # (Auto) (1.00-4.80) 10^3/uL Harlan # (Auto) (0.00-0.80) 10^3/uL Eos # (Auto) (0.00-0.45) 10^3/uL Baso # (Auto) 10^3/uL Sodium (136-145) mEq/L Potassium (3.5-5.0) mEq/L Chloride (98-106) mEq/L Carbon Dioxide (21-32) mmol/L BUN (7-18) mg/dL Creatinine (0.7-1.3) mg/dL Est Cr Clr Drug Dosing mL/min Estimated GFR (MDRD) (>=60) mL/min Glucose (75-99) mg/dL Calcium (8.4-10.1) mg/dL Total Bilirubin (0.0-1.0) mg/dL AST (15-37) U/L ALT (12-78) U/L Alkaline Phosphatase (46-116) U/L C-Reactive Protein (0.2-0.8) mg/dL Total Protein (6.4-8.2) g/dL Albumin (3.4-5.0) g/dL Amylase (25-115) U/L Lipase (73-393) U/L Urine Color (YELLOW) Urine Appearance (CLEAR) Urine pH (4.5-8.0) Ur Specific [place] (1.003-1.020) Urine Protein (NEGATIVE) mg/dL Urine Glucose (UA) (NEGATIVE) mg/dL Urine Ketones (NEGATIVE) mg/dL Urine Occult Blood (NEGATIVE) Urine Nitrite (NEGATIVE) Urine Bilirubin (NEGATIVE) Urine Urobilinogen (0.2-1.0) EU/dL Ur Leukocyte Esterase (NEGATIVE) Urine RBC (0-5) /HPF Urine WBC (0-5) /HPF Urine WBC Clumps (NOT SEEN) /HPF Urine Bacteria (NOT SEEN) /HPF Urinalysis Comment Urine Opiates Screen Negative (NEGATIVE) Ur Oxycodone Screen Negative (NEGATIVE) Urine Methadone Screen Negative (NEGATIVE) Ur Barbiturates Screen Negative (NEGATIVE) U Tricyclic Antidepress Negative (NEGATIVE) Ur Phencyclidine Scrn Negative (NEGATIVE) Ur Amphetamine Screen Negative (NEGATIVE) U Methamphetamines Scrn Negative (NEGATIVE) Urine MDMA Screen Negative (NEGATIVE) U Benzodiazepines Scrn Negative (NEGATIVE) Urine Cocaine Screen Negative (NEGATIVE) U Marijuana (THC) Screen Negative (NEGATIVE) SARS CoV-2 RNA Rapid MONIKA Negative (NEGATIVE) Meds: Medications Generic Name Dose Route Start Last Admin Trade Name Freq PRN Reason Stop Dose Admin Fentanyl 25 mcg 12/17/20 06:21 12/17/20 08:04 Sublimaze IVPUSH 25 mcg Q6H PRN Administration Abdominal Pain Discontinued Medications Generic Name Dose Route Start Last Admin Trade Name Fremaria r PRN Reason Stop Dose Admin Barium Sulfate 900 ml 12/17/20 07:38 12/17/20 10:46 Readi-Cat 2 PO 12/17/20 07:39 900 ml ONETIME ONE Administration Ceftriaxone Sodium 2 gm 12/17/20 09:45 Rocephin IVPUSH Q24H ANTELMO Ceftriaxone Sodium 1 gm 12/17/20 09:35 12/17/20 10:32 Rocephin IVPUSH 12/17/20 09:36 1 gm ONETIME ONE Administration Al Hydroxide/Mg Hydroxide 30 0 ml 12/17/20 06:49 12/17/20 07:04 ml/ Lidocaine HCl 15 ml PO 12/17/20 06:50 15 ml ONETIME ONE Administration Fentanyl 25 mcg 12/17/20 06:53 12/17/20 07:01 Sublimaze IVPUSH 12/17/20 06:54 25 mcg NOW ONE Administration Iopamidol 100 ml 12/17/20 07:38 12/17/20 10:46 Isovue-370 (76%) IVPUSH 12/17/20 07:39 100 ml ONETIME ONE Administration Ondansetron HCl 4 mg 12/17/20 06:49 12/17/20 06:59 Zofran IVPUSH 12/17/20 06:50 4 mg NOW ONE Administration - Re-Assessments/Exams Free Text/Narrative Re-Assessment/Exam: 12/17/20 07:32 Pain is down to a 4, was sleeping. Had fentanyl, GI cocktail and Zofran. Admits to "relief of severe pain". Labs are all normal. excelsior machine tender in upper quads. Will scan abdomen to rule out emergent concern, advised may need further work up of gallbladder if negative. 12/17/20 0800 Patient reports concern with possible STD after UA obtained. States had unprotected intercourse 5 days ago and now urine is cloudy and admits to some "burning at times" Will obtain GC and Chlamydia testing as well. Rocephin ordered per Jose M Smith 1200 Patient has been resting comfortably this morning. CT scan completed, report shows mesenteric adenitis and reactive lymph nodes. Spoke with patient. Will cover for possible sTD and prostatitis versus UTI and adenitis. Follow up with Dr. Lam if persisting pain with eating as would consider gallbladder work up a well. Departure - Departure Time of Disposition: 12:27 Disposition: Home, Self-Care 01 Condition: Fair Clinical Impression: Prostatitis, acute, Mesenteric adenitis - Discharge Information *PRESCRIPTION DRUG MONITORING PROGRAM REVIEWED*: No *COPY OF PRESCRIPTION DRUG MONITORING REPORT IN PATIENT YOVANNY: No Instructions: Mesenteric Adenitis, Adult, Prostatitis, [id number] Referrals: Yuriy Lam MD [Primary Care Provider] - Forms: ED Department Discharge Additional Instructions: 1. Rest 2. Push fluids 3. Doxycycline 100 mg twice a day for 10 days 4. [place] diet 5. [place] 5/325 one tab every 6 hour for pain 6. We will notify you when results of STD testing returned 7. Follow up with Dr. Lam for any concerns or persisting pain Sepsis Event Note (ED) - Focused Exam Vital Signs: Vital Signs Temp Pulse Resp BP Pulse Ox 12/17/20 06:08 98.1 F 100 18 127/79 96 - My Orders Last 24 Hours: My Active Orders 12/17/20 06:21 fentaNYL [Sublimaze] 25 mcg IVPUSH Q6H PRN 12/17/20 06:41 Abdomen 2V AP Flat Upright [CR] Stat 12/17/20 07:31 Abdomen Pelvis w Cont [CT] Stat 12/17/20 07:56 CHLAMYDIA AND GONORRHEA BY TMA Stat - Assessment/Plan Last 24 Hours: My Active Orders 12/17/20 06:21 fentaNYL [Sublimaze] 25 mcg IVPUSH Q6H PRN 12/17/20 06:41 Abdomen 2V AP Flat Upright [CR] Stat 12/17/20 07:31 Abdomen Pelvis w Cont [CT] Stat 12/17/20 07:56 CHLAMYDIA AND GONORRHEA BY TMA Stat
[2020-12-17 07:13] LABS: CHLORIDE,CL 99 mEq/L (98-106); SODIUM,NA 139 mEq/L (136-145)
[2020-12-17 07:14] VITALS: BP 127/79; PULSE 100
[2020-12-17] MEDS ORDERED: Iopamidol 755 Mg/ML 100 ML Bottle IVPUSH ONE (07:38)
[2020-12-17] MEDS ORDERED: Barium Sulfate Oral Susp 450 ML Bottle PO ONE (07:38)
[2020-12-17] MEDS ORDERED: cefTRIAXone 1 GM Vial IVPUSH ONE (09:35)
[2020-12-17] MEDS ORDERED: cefTRIAXone 1 GM Vial IVPUSH SCH (09:45)
[2020-12-18 11:42] LABS: C.TRACHOMATIS BY TMA Positive (Negative); N.GONORRHOEAE BY TMA Positive (Negative)
== END 2020-12-17 13:30 | disposition home or self-care (01) ==
LOC: CC.ED 06:07
DX: N41.0 Acute prostatitis (principal); I88.0 Nonspecific mesenteric lymphadenitis; I10 Essential (primary) hypertension; J44.9 Chronic obstructive pulmonary disease, unspecified; Z79.899 Other long term (current) drug therapy; Z20.822 Contact with and (suspected) exposure to COVID-19
CPT/HCPCS: 36415; 74019; 74177; 80053; 80305-QW; 81001; 82150; 83690; 85025; 86140; 87086; 87491; 87591; 96374; 96375; 96376; 99284; 99285-25; A9270-GY; J0696; J2405; J3010; Q9967; U0002

== ENCOUNTER 2021-06-03 13:59 | Emergency (ER) | payer MEDICARE, MEDICAID ==
[2021-06-03 14:05] VITALS: BP 155/98; PULSE 86
== END 2021-06-03 14:50 | disposition left against medical advice (07) ==
LOC: CC.ED 13:59
DX: Z53.21 Procedure and treatment not carried out due to patient leaving prior to being seen by health care provider (principal)

== ENCOUNTER 2021-07-02 16:25 | Emergency (ER) | payer MEDICARE, MEDICAID ==
[2021-07-02 16:57] VITALS: BP 136/83; PULSE 87
[2021-07-02 17:11] LABS: AMPHETAMINES,URINE POSITIVE (NEGATIVE); BARBITURATES,URINE NEGATIVE (NEGATIVE); BENZODIAZEPINE,URINE NEGATIVE (NEGATIVE); MDMA (ECSTASY), URINE NEGATIVE (NEGATIVE); METHADONE,URINE NEGATIVE (NEGATIVE); METHAMPHETAMINES,URINE POSITIVE (NEGATIVE); OPIATES,URINE NEGATIVE (NEGATIVE); OXYCODONE,URINE NEGATIVE (NEGATIVE); PHENCYCLIDINE,URINE NEGATIVE (NEGATIVE); TCA,URINE NEGATIVE (NEGATIVE)
[2021-07-02 17:14] LABS: CHLORIDE,CL 105 mEq/L (98-106); SODIUM,NA 139 mEq/L (136-145)
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
[2021-07-02] MEDS ORDERED: ClonazePAM 1 MG Tab PO STA (17:53)
== END 2021-07-02 18:26 ==
LOC: CC.ED 16:25
DX: F30.9 Manic episode, unspecified (principal); F15.10 Other stimulant abuse, uncomplicated; Z79.899 Other long term (current) drug therapy
CPT/HCPCS: 36415; 80053; 80305-QW; 81001; 85025; 86140; 99283; 99284; A9270-GY